=== PATIENT | female | born 1955 | race Caucasian/White ===

== ENCOUNTER 2020-05-02 13:52 | Emergency (ER) | payer OTHER ==
[~2020-05-02] VITALS: Ht 160 cm; Wt 104.3 kg
[2020-05-02] MEDS ORDERED: ALLO100 PO (14:23)
[2020-05-02] MEDS ORDERED: ACET325 PO (14:23)
[2020-05-02] MEDS ORDERED: LEVSOD137 PO (14:24)
[2020-05-02] MEDS ORDERED: Norco 10-325 T1 EACH PO (14:24)
[2020-05-02] MEDS ORDERED: KETO15TC TOP (14:24)
[2020-05-02] MEDS ORDERED: LISI20 PO (14:25)
[2020-05-02] MEDS ORDERED: MELO7.5 PO (14:26)
[2020-05-02] MEDS ORDERED: Robaxin750 MG PO (14:27)
[2020-05-02] MEDS ORDERED: Triamcinolone A15 G2 TOP (14:28)
[2020-05-02] MEDS ORDERED: TUCKS1 EACH TP (14:28)
[2020-05-02 14:32] LABS: BASOPHILS ABSOLUTE AUTO 0.04 K/mm3 (0.00-0.23); BASOPHILS PERCENT AUTO 1 % (0-2); EOSINOPHILS PERCENT AUTO 0 % (0-6); Hematocrit 38.4 % (33.0-51.0); Hemoglobin 12.2 g/dL (11.5-16.0); IMMATURE GRAN ABSOLUTE AUTO 0.02 K/mm3 (0.00-0.10); IMMATURE GRAN PERCENT AUTO 0 % (0-1); LYMPHOCYTES PERCENT AUTO 21 % (21-46); MONOCYTES ABSOLUTE AUTO 0.89 K/mm3 (0.16-1.47); MONOCYTES PERCENT AUTO 12 % (4-13); Mean Corpuscular HGB 27.7 pg (26.0-34.0); Mean Corpuscular HGB Conc 31.8 g/dL (31.5-36.5); Mean Corpuscular Volume 87 fL (80-100); Mean Platelet Volume 9.7 fL (9.1-12.4); NEUTROPHILS PERCENT AUTO 67 % (41-73); Platelet Count 368 K/mm3 (150-400); RDW Standard Deviation 44.8 fL (35.1-46.3); White Blood Cell Count 7.75 K/mm3 (4.00-11.30)
[2020-05-02 14:53] LABS: Alanine Aminotransfer (ALT/SGP 24 U/L (12-78); Albumin, Blood 3.5 g/dL (3.4-5.0); Albumin/Globulin Ratio 0.8 (0.8-1.8); Alk Phos 84 U/L (50-136); Anion Gap 6 mmol/L (6-16); Aspartate Aminotrans (AST/SGOT 13 U/L (12-37); Bilirubin, Total 0.2 mg/dL (0.1-1.0); Blood Urea Nitrogen 18 mg/dL (8-24); CO2, Blood 29 mmol/L (21-32); Calcium, Blood 9.5 mg/dL (8.5-10.1); Chloride, Blood 105 mmol/L (98-108); Creatinine, Blood 0.72 mg/dL (0.40-1.00); Globulin, Blood 4.6 g/dL (2.2-4.0); Glomerular Filtration Rate >60 (60-); Glucose, Blood 116 mg/dL (70-99); Potassium, Blood 3.9 mmol/L (3.5-5.5); Sodium, Blood 140 mmol/L (136-145); Total Protein, Blood 8.1 g/dL (6.4-8.2); Troponin I <0.015 ng/mL (0.000-0.040)
[2020-05-02] MEDS ORDERED: Robaxin-750750 MG PO (15:25)
== END 2020-05-02 16:19 | disposition home or self-care (01) ==
LOC: ER 13:52
PROVIDERS: Emergency Medicine
DX: R00.2 Palpitations (principal); R25.1 Tremor, unspecified; R42 Dizziness and giddiness; Z88.0 Allergy status to penicillin; Z88.8 Allergy status to other drugs, medicaments and biological substances; Z79.899 Other long term (current) drug therapy
CPT/HCPCS: 36415; 80053; 83735; 84484; 85025; 93005; 93010; 99284-25

== ENCOUNTER 2021-09-20 13:05 | Emergency (ER) | payer OTHER ==
[~2021-09-20] VITALS: Ht 160 cm; Wt 111.1 kg
[~2021-09-20 13:05] MED LIST: ACET325 PO; ALLO100 PO; KETO15TC TOP; LEVSOD137 PO; LISI20 PO; MELO7.5 PO; Norco 10-325 T1 EACH PO; Robaxin-750750 MG PO; Robaxin750 MG PO; TUCKS1 EACH TP; Triamcinolone A15 G2 TOP
== END 2021-09-20 16:17 | disposition home or self-care (01) ==
LOC: ER 13:05
DX: M25.562 Pain in left knee (principal); M25.552 Pain in left hip; Z79.899 Other long term (current) drug therapy; Z88.0 Allergy status to penicillin; Z88.2 Allergy status to sulfonamides; Z88.8 Allergy status to other drugs, medicaments and biological substances; Z91.040 Latex allergy status; X50.1XXA Overexertion from prolonged static or awkward postures, initial encounter
CPT/HCPCS: 73502; 73562-LT; J1885

== ENCOUNTER 2023-10-10 09:47 | Inpatient (IN) | payer OTHER ==
[~2023-10-10] VITALS: Ht 160 cm; Wt 106.5 kg
[2023-10-10] MEDS ORDERED: Dexamethasone Sod Phos 10 MG/ML 1ML VIAL IV ONE (10:20)
[2023-10-10 10:30] LABS: BASOPHILS ABSOLUTE AUTO 0.02 K/mm3 (0.00-0.23); BASOPHILS PERCENT AUTO 0 % (0-2); EOSINOPHILS PERCENT AUTO 0 % (0-6); Hemoglobin 14.9 g/dL (11.5-16.0); IMMATURE GRAN ABSOLUTE AUTO 0.01 K/mm3 (0.00-0.10); IMMATURE GRAN PERCENT AUTO 0 % (0-1); LYMPHOCYTES ABSOLUTE AUTO 1.67 K/mm3 (0.84-5.20); LYMPHOCYTES PERCENT AUTO 29 % (21-46); MONOCYTES ABSOLUTE AUTO 0.63 K/mm3 (0.16-1.47); MONOCYTES PERCENT AUTO 11 % (4-13); Mean Corpuscular HGB 28.8 pg (26.0-34.0); Mean Corpuscular HGB Conc 33.9 g/dL (31.5-36.5); Mean Corpuscular Volume 85 fL (80-100); NEUTROPHILS ABSOLUTE AUTO 3.52 K/mm3 (1.96-9.15); NEUTROPHILS PERCENT AUTO 60 % (41-73); Platelet Count 249 K/mm3 (150-400); RDW Coefficient Variation 13.8 % (11.7-14.2); RDW Standard Deviation 43.1 fL (35.1-46.3); Red Blood Cell Count 5.18 M/mm3 (3.80-5.20); White Blood Cell Count 5.85 K/mm3 (4.00-11.30)
[2023-10-10 10:42] LABS: Albumin, Blood 2.3 g/dL (3.4-5.0); Albumin/Globulin Ratio 0.4 (0.8-1.8); Bilirubin, Total 0.4 mg/dL (0.1-1.0); Bun/Creatinine Ratio 17.6 (12.0-20.0); Calcium, Blood 8.4 mg/dL (8.5-10.1); Creatinine, Blood 0.8 mg/dL (0.40-1.00); Globulin, Blood 5.4 g/dL (2.2-4.0); Potassium, Blood 3.5 mmol/L (3.5-5.5); Total Protein, Blood 7.7 g/dL (6.4-8.2)
[2023-10-10] MEDS ORDERED: CefTRIAXone Sodium 1,000 MG in NS 100 ML IV ONE (11:20)
[2023-10-10] MEDS ORDERED: NS 100 ML IV ONE (12:02)
[2023-10-10] MEDS ORDERED: CefTRIAXone 1000 MG Vial ONE (12:02)
[2023-10-10] MEDS ORDERED: Acetaminophen 325 MG TABLET PO PRN (12:05)
[2023-10-10] MEDS ORDERED: Azithromycin 500 MG in NS 250 ML IV SCH (12:12)
[2023-10-10] MEDS ORDERED: Remdesivir (EUA) 200 MG in NS 250 ML IV ONE (12:15)
[2023-10-10] MEDS ORDERED: HydrALAZINE HCl 20 MG / ML 1ML Vial IV STA (12:44)
[2023-10-10] MEDS ORDERED: HydrALAZINE HCl 20 MG / ML 1ML Vial IV PRN (13:00)
[2023-10-10] MEDS ORDERED: Losartan Potassium 50 MG Tab PO SCH (13:00)
[2023-10-10 13:36] VITALS: BP 179/103
[2023-10-10] MEDS ORDERED: NS 250 ML IV ONE (15:08)
[2023-10-10] MEDS ORDERED: Azithromycin 500 MG VIAL ONE (15:08)
[2023-10-10 16:04] VITALS: BP 152/75
[2023-10-10] MEDS ORDERED: Insulin Human Lispro 100 Units/ML 3ML Syringe SC SCH (16:30)
[2023-10-10] MEDS ORDERED: Miconazole Nitrate 2% 85 GM PWD TOP PRN (17:00)
--- NOTE | 2023-10-10 18:30 | NUR ---
ADMISSION NOTE/SHIFT SUMMARY PATIENT A/OX4, ABLE TO MAKE NEEDS KNOWN. PATIENT WHEELCHAIR BOUND AT BASELINE, STAND BY ASSIST WITH TRANSFERS TO BEDSIDE COMMODE. PATIENT WITH TELEMETRY IN PLACE. PATIENT WITH 1LPM VIA NASAL CANNULA OF SUPPLEMENTAL OXYGEN. PATIENT ON COVID PRECAUTIONS. PATIENT WITH BLOOD SUGAR OF 395 BEFORE DINNER. MD NOTIFIED AND CHANGES HUMOLOG TO HIGH SCALE DOSING. PATIENT WITH RED MOIST RASH TO LEFT SIDE OF ABDOMINAL FOLD AND EXCORIATION TO GLUTEAL CLEFT. BARRIER CREAM APPLIED TO BUTTOCKS AND MEDICATED POWDER APPLIED ABDOMINAL FOLD. NO OTHER CONCERNS AT THIS TIME.
[2023-10-10 20:38] VITALS: BP 140/74
[2023-10-10] MEDS ORDERED: Insulin Glargine-Yfgn 100 Unit/mL 3 ML SYR SC SCH (21:00)
[2023-10-10] MEDS ORDERED: Methocarbamol 500 MG Tab PO SCH (21:00)
[2023-10-10] MEDS ORDERED: HYDROcodone 5-APAP 325 TAB PO SCH (21:00)
[2023-10-11 03:08] VITALS: BP 137/77
[2023-10-11] MEDS ORDERED: Levothyroxine Sodium 0.137 MG Tab PO SCH (06:00)
--- NOTE | 2023-10-11 08:30 | NUR ---
SHIFT SUMMARY: EKATERINA IS A&OX4. VSS, NO ACUTE EVENTS OVERNIGHT. PT REPORTED DURING BEDSIDE SHIFT REPORT THAT SHE HAS BEEN "DRY HEAVING ALL NIGHT", ALTHOUGH PT DID NOT PREVIOUSLY REPORT SYMPTOMS. WHILE THIS RN WAS IN THE ROOM, PT COUGHED THEN ATTEMPTED TO SWALLOW AND GAGGED. PT STATED THAT THIS WAS DRY HEAVING. SHE STATED THAT THIS WAS OCCURING YESTERDAY WELL, BUT THAT SHE HAD NOT REQUESTED MEDICATION. NO ANTIEMETICS WERE FOUND ON PT'S EMAR, DISCUSSED WITH DAY SHIFT RN AND PT TO REQUEST MEDICATION FROM HOSPITALIST. 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 PT STATES THAT SHE "GETS PULLED MUSCLES AND JOINTS" IF ANYONE TRIES TO ASSIST HER PHYSICALLY. PT ALSO STATED THAT SHE "FRIES COMPUTERS AND MONITORS WHEN MY ENERGY IS HIGH" AND THAT THE WET WIPES WERE CAUSING AN INFECTION. REQUESTED DAY SHIFT MANAGER HARDWARE TO AVOID USING WET WIPES. SHE IS MAINTAINING SATS ON 1 LPM VIA NC. SHE IS SITTING UP IN BED WITH THE CALL LIGHT IN REACH, WHICH SHE USES APPROPRIATELY. BED IN LOWEST POSITION. REPORT WAS GIVEN TO DAY SHIFT RN.
[2023-10-11] MEDS ORDERED: dexAMETHasone 4 MG TAB PO SCH (09:00)
[2023-10-11] MEDS ORDERED: Allopurinol 100 MG Tab PO SCH (09:00)
[2023-10-11] MEDS ORDERED: Enoxaparin 40 MG/0.4 ML SYR SC SCH (09:00)
[2023-10-11] MEDS ORDERED: Azithromycin 250 MG Tab PO SCH (09:00)
[2023-10-11] MEDS ORDERED: CefTRIAXone 1000 MG Vial ONE (11:56)
[2023-10-11] MEDS ORDERED: NS 100 ML IV ONE (11:56)
[2023-10-11] MEDS ORDERED: Remdesivir (EUA) 100 MG in NS 250 ML IV SCH (12:00)
[2023-10-11] MEDS ORDERED: CefTRIAXone Sodium 1,000 MG in NS 100 ML IV SCH (12:00)
[2023-10-11] MEDS ORDERED: Promethazine HCl 25 MG Tab PO PRN (12:45)
[2023-10-11 17:03] VITALS: BP 143/66
--- NOTE | 2023-10-11 17:05 | NUR ---
BLOOD SUGAR 353 MD NOTIFIED, NO NEW ORDERS AT THIS TIME.
--- NOTE | 2023-10-11 17:57 | NUR ---
SHIFT SUMMARY PATIENT A/OX4, ABLE TO MAKE NEEDS KNOWN. COOPERATIVE WITH CARE. SBA WITH TRANSFERS TO BEDSIDE COMMODE, NO BOWEL MOVEMENTS TODAY. TELEMETRY DISCONTINUED PER MD THIS AFTERNOON. PATIENT CONTINUES WITH 1L SUPPLEMENTAL OXYGEN VIA NASAL CANNULA. ATTEMPTED TO WEAN PATIENT TO ROOM AIR AND SPO2 DROPPED TO 87%. PATIENT NOTED TO HAVE DYSPNEA WITH EXERTION. IV ABX DISCONTINUED. PHENERGAN ORDERED PRN AND ADMINISTERED ONCE THIS AFTERNOON, EFFECTIVE. PATIENT WITH BLOOD SUGAR OF 353 BEFORE DINNER, MD NOTIFIED, INSULIN ADMINISTERED PER APR. COMPUTER IN PATIENT'S ROOM NOT WORKING PROPERLY AND PATIENT STATES "COMPUTERS ALWAYS DO THAT AROUND ME". 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 PATIENT ALSO STATING SHE HAS ALLERGIES TO GLUTEN AND LACTOSE BUT THEN REQUESTS TO EAT CHEESE AND CRACKERS WITH NO ADVERSE REACTIONS OBSERVED. PATIENT VERY PARTICULAR WITH CARE RECIEVED, REQUESTING ONLY TOILET PAPER BEING USED FOR PERICARE WET WIPES CAUSE A "REACTION". NO OTHER CONCERNS THIS SHIFT.
[2023-10-11 19:54] VITALS: BP 139/66
[2023-10-12 02:45] VITALS: BP 119/72
[2023-10-12 07:42] VITALS: BP 148/69
[2023-10-12] MEDS ORDERED: INSULANPEN SC (12:14)
[2023-10-12] MEDS ORDERED: DECADRON6 M1 PO (12:14)
[2023-10-12] MEDS ORDERED: HUMALOG KW100 UNIT/1 SC (12:24)
--- NOTE | 2023-10-12 15:22 | NUR ---
SHIFT/DISCHARGE SUMMARY: PATIENT A/OX4, PLEASANT AND COOPERATIVE c CARE. PATIENT REPORTS PAIN TO BILAT SHOULDER, MEDICATED c SCHEDULED PAIN MEDS PER EMAR c GOOD EFFECT. PATIENT CURRENTLY ON 1L O2 VIA NC c SPO2 SATING 89-94%. LUNGS CLEAR/DIM T/O TO AUSCULTATION. PATIENT RECEIVED SCHEDULED MEDS PER EMAR. PATIENT HAS GOOD APPETITE, CONTINENT OF BOWEL/BLADDER, USES BSC c SBA. PIV DC'D. PATIENT HAD HOME O2 EVAL, RECOMMENDING 2L c AMBULATIONS. PATIENT SHOWERED c MINIMAL ASSISTANCE. PATIENT HAS NO COMPLAINTS OR DENIES NEW CONCERNED THIS SHIFT. PATIENT PORTABLE O2 DELIVERED IN ROOM BY [facility]. PATIENT DISCHARGE HOME. DISCHARGE INSTRUCTIONS PACKET GIVEN TO PATIENT. EDUCATED PATIENT REGARDING ADMITTING DX'S OF ACUTE RESP. FAILURE c HYPOXIA D/T COVID POSITIVE, S/S, TX, NEW PRESCRIBED RX AND TO F/U c PCP. PATIENT VERBALIZED UNDERSTANDING AND NO FURTHER QUESTIONS AT THIS TIME. PATIENT PERSONNAL BELONGINGS ARE PACKED AND READY TO GO. PATIENT SITTING UP IN THE RECLINER CHAIR, AWAITING FOR RIDES AT THIS TIME. CALL LIGHT IN REACH.
--- NOTE | 2023-10-12 17:16 | NUR ---
ADDITIONAL NOTE: PATIENT PERSONAL BELONGINGS WERE SENT HOME c THE PATIENT. PATIENT LEFT THE ROOM AT 1716 TRANSPORTED VIA WHEELCHAIR BY [facility] STAFF, MARINA TO PATIENT ENTRANCE.
== END 2023-10-12 17:17 | disposition home or self-care (01) | DRG 177 ==
LOC: ER 09:47 → MEDS 12:00
PROVIDERS: Student in an Organized Health Care Education/Training Program; ADMIT Internal Medicine
PROC: XW033E5 Introduction of Remdesivir Anti-infective into Peripheral Vein, Percutaneous Approach, New Technology Group 5 (ICD-10-PCS; principal; 2023-10-10)
PROC: 3E0DX3Z Introduction of Anti-inflammatory into Mouth and Pharynx, External Approach (ICD-10-PCS; 2023-10-10)
DX: U07.1 COVID-19 (principal); J12.82 Pneumonia due to coronavirus disease 2019; J96.01 Acute respiratory failure with hypoxia; E87.1 Hypo-osmolality and hyponatremia; Z68.41 Body mass index [BMI] 40.0-44.9, adult; I16.0 Hypertensive urgency; E11.9 Type 2 diabetes mellitus without complications; Z66 Do not resuscitate; E03.9 Hypothyroidism, unspecified; E66.01 Morbid (severe) obesity due to excess calories; M10.9 Gout, unspecified; I10 Essential (primary) hypertension; M54.9 Dorsalgia, unspecified; G89.4 Chronic pain syndrome; Z88.0 Allergy status to penicillin; Z88.2 Allergy status to sulfonamides; Z88.8 Allergy status to other drugs, medicaments and biological substances; Z79.4 Long term (current) use of insulin; Z91.040 Latex allergy status; Z88.7 Allergy status to serum and vaccine; Z88.1 Allergy status to other antibiotic agents; Z79.899 Other long term (current) drug therapy; Z79.891 Long term (current) use of opiate analgesic; Z79.890 Hormone replacement therapy
CPT/HCPCS: 36415; 71045; 80053; 82947; 84145; 84484; 85025; 85379; 93005; 93010; 94761; 96374; 99285-25; A9270; J0248; J0456; J0696; J1100; J1650; J1815; J7050

== ENCOUNTER 2023-12-25 00:20 | Emergency (ER) | payer SELFPAY ==
[~2023-12-25] VITALS: Ht 160 cm; Wt 106.6 kg
[~2023-12-25 00:20] MED LIST changes: +DECADRON6 M1 PO; +HUMALOG KW100 UNIT/1 SC; +INSULANPEN SC
[2023-12-25 02:00] VITALS: BP 191/89
[2023-12-25] MEDS ORDERED: Acetaminophen 500 MG Tab PO ONE (03:40)
[2023-12-25] MEDS ORDERED: Ketorolac Tromethamine 30mg Vial IM ONE (03:40)
[2023-12-25] MEDS ORDERED: Methocarbamol 500 MG Tab PO ONE (03:40)
[2023-12-25] MEDS ORDERED: Methyl Salicylate/Menth/Camph 57 GM TUBE TOP ONE (03:40)
[2023-12-25] MEDS ORDERED: Robaxin750 MG PO (05:51)
[2023-12-25] MEDS ORDERED: IBUP400 PO (05:52)
[2023-12-25] MEDS ORDERED: ACET325 PO (05:52)
== END 2023-12-25 07:00 | disposition home or self-care (01) ==
LOC: ER 00:20
DX: S39.012A Strain of muscle, fascia and tendon of lower back, initial encounter (principal); S76.012A Strain of muscle, fascia and tendon of left hip, initial encounter; E03.9 Hypothyroidism, unspecified; E11.9 Type 2 diabetes mellitus without complications; I10 Essential (primary) hypertension; X58.XXXA Exposure to other specified factors, initial encounter; Z79.4 Long term (current) use of insulin; Z79.899 Other long term (current) drug therapy; Z88.0 Allergy status to penicillin; Z88.2 Allergy status to sulfonamides; Z88.1 Allergy status to other antibiotic agents; Z91.040 Latex allergy status; Z88.7 Allergy status to serum and vaccine; Z88.8 Allergy status to other drugs, medicaments and biological substances
CPT/HCPCS: 73502; 96372; 99284-25; A9270; J1885